=== PATIENT | female | born 1985 | race African-American/Black ===

== ENCOUNTER 2021-02-13 07:09 | Emergency (ER) | payer OTHER ==
[~2021-02-13] VITALS: Ht 170.2 cm; Wt 118.5 kg
[2021-02-13] MEDS ORDERED: METF500T13 PO (07:23)
[2021-02-13] MEDS ORDERED: BENA10TA PO (07:23)
[2021-02-13] MEDS ORDERED: AMIT-253 PO (07:23)
[2021-02-13] MEDS ORDERED: JARD1TAB PO (07:23)
[2021-02-13] MEDS ORDERED: BYET1INJ SC (07:23)
[2021-02-13] MEDS ORDERED: TOPA1TAB PO (07:23)
[2021-02-13] MEDS ORDERED: SUMA20SP (07:23)
[2021-02-13] MEDS ORDERED: KETOROLAC 30 MG/ML 1ML VIAL IV ONE (08:00)
[2021-02-13] MEDS ORDERED: METOCLOPRAMIDE INJ 10MG/2ML VIAL (J2765 PER 1) IV ONE (08:00)
[2021-02-13] MEDS ORDERED: ACETAMINOPHEN *IV* 1,000 MG in IV 1 EA IV ONE (08:00)
[2021-02-13] MEDS ORDERED: NS 1,000 ML IV ONE (08:00)
[2021-02-13] MEDS ORDERED: ONDA4TAB6 PO (09:32)
[2021-02-13 09:52] VITALS: BP 152/88
== END 2021-02-13 09:55 | disposition home or self-care (01) ==
LOC: M ED 07:09
DX: G43.909 Migraine, unspecified, not intractable, without status migrainosus (principal); E11.9 Type 2 diabetes mellitus without complications; E66.9 Obesity, unspecified; Z79.899 Other long term (current) drug therapy; Z79.84 Long term (current) use of oral hypoglycemic drugs
CPT/HCPCS: 96361; 96365; 96375; 99284; J0131; J1885; J2765

== ENCOUNTER → 2021-02-24 | Outpatient (REF) | payer OTHER ==
[~2021-02-24] MED LIST: AMIT-253 PO; BENA10TA PO; BYET1INJ SC; JARD1TAB PO; METF500T13 PO; ONDA4TAB6 PO; SUMA20SP; TOPA1TAB PO
[2021-02-24 18:24] LABS: MALB URINE SIEMENS 25.1 MG/L; MAU/CREAT RATIO 8.6 MCG/MG (0.0-30.0)
== END ==
LOC: M LAB REF 16:52
PROVIDERS: ATTEND Nurse Practitioner Family
DX: E11.65 Type 2 diabetes mellitus with hyperglycemia (principal)

== ENCOUNTER 2021-05-16 04:59 | Emergency (ER) | payer OTHER ==
[~2021-05-16] VITALS: Ht 170.2 cm; Wt 111.4 kg
[2021-05-16 05:59] LABS: RSV AMPLIFICATION NEGATIVE (NEGATIVE)
[2021-05-16] MEDS ORDERED: AUGM875T28 PO (07:29)
[2021-05-16 08:11] VITALS: BP 132/82
== END 2021-05-16 08:12 | disposition home or self-care (01) ==
LOC: M ED 04:59
DX: J32.9 Chronic sinusitis, unspecified (principal); E11.9 Type 2 diabetes mellitus without complications; I10 Essential (primary) hypertension; Z79.899 Other long term (current) drug therapy; Z79.84 Long term (current) use of oral hypoglycemic drugs

== ENCOUNTER → 2021-09-25 | Outpatient (REF) ==
[~2021-09-25] MED LIST changes: +AUGM875T28 PO
--- NOTE | 2021-09-25 12:48 | REP ---
INDICATION: SOB. COMPARISON: None. TECHNIQUE: Lateral, Water's, PA and SMV views FINDINGS: Evaluation is limited by overlying soft tissue opacities. Findings suggest pansinus mucosal thickening without obvious fluid level or foreign body. The osseous structures are grossly intact. IMPRESSION: Pansinus mucosal thickening suggested. <Electronically signed by Gilson Rosa > 09/25/21 [id number]
== END ==
LOC: M PLAIMG 11:24
PROVIDERS: ATTEND Internal Medicine
DX: R06.02 Shortness of breath (principal)